=== PATIENT | male | born 1990 | race Caucasian/White ===

== ENCOUNTER 2017-01-18 23:45 | Emergency (ER) | payer SELFPAY ==
[2017-01-18 23:47] VITALS: BP 140/68; PULSE 66; RESP 18; TEMP 97
[2017-01-19] MEDS ORDERED: OXYMETAZOLINE 0.05% NASL SPRAY 15 ML NASAL STA (00:01)
--- NOTE | 2017-01-19 00:07 | ED ---
General Adult HPI - General Chief complaint: ENT Stated complaint: NOSE BLEED Time Seen by Provider: 01/18/17 23:47 Source: patient, EMS, RN notes reviewed, old records reviewed Mode of arrival: EMS Limitations: no limitations - History of Present Illness Initial comments: This is a 18-year-old male year for evaluation of nosebleed. Patient has bleeding from his left nostril. Being started tonight while playing the areas, has persisted for about the past 15-20 minutes but persisted stopped upon arrival to Hospital. Patient has no history of bleeding disorder, no history of bloody noses, denies drug abuse denies recent illness, denies trauma to nose. - Related Data Home Medications Medication Instructions Recorded Confirmed No Known Home Medications [No 01/18/17 01/18/17 Known Home Medications] Allergies Allergy/AdvReac Type Severity Reaction Status Date / Time No Known Allergies Allergy Verified 01/18/17 23:47 Review of Systems ROS Statement: Those systems with pertinent positive or pertinent negative responses have been documented in the HPI. ROS Other: All systems not noted in ROS Statement are negative. Past Medical History Past Medical History: No Reported History History of Any Multi-Drug Resistant Organisms: None Reported Past Surgical History: No Surgical Hx Reported Past Psychological History: No Psychological Hx Reported Smoking Status: Current every day smoker Past Alcohol Use History: Occasional Past Drug Use History: Cocaine, Marijuana General Exam Limitations: no limitations General appearance: alert, in no apparent distress Head exam: Present: atraumatic, normocephalic, normal inspection Eye exam: Present: normal appearance, PERRL, EOMI. Absent: scleral icterus, conjunctival injection, periorbital swelling ENT exam: Present: normal exam, mucous membranes moist Neck exam: Present: normal inspection. Absent: tenderness, meningismus, lymphadenopathy Respiratory exam: Present: normal lung sounds bilaterally. Absent: respiratory distress, wheezes, rales, rhonchi, stridor Cardiovascular Exam: Present: regular rate, normal rhythm, normal heart sounds. Absent: systolic murmur, diastolic murmur, rubs, gallop, clicks GI/Abdominal exam: Present: soft, normal bowel sounds. Absent: distended, tenderness, guarding, rebound, rigid Extremities exam: Present: normal inspection, full ROM, normal capillary refill. Absent: tenderness, pedal edema, joint swelling, calf tenderness Back exam: Present: normal inspection Neurological exam: Present: alert, oriented X3, CN II-XII intact Psychiatric exam: Present: normal affect, normal mood Skin exam: Present: warm, dry, intact, normal color. Absent: rash Course Vital Signs 01/18/17 23:46 Temperature 97 F L Pulse Rate 66 Respiratory 18 Rate Blood Pressure 140/68 O2 Sat by Pulse 99 Oximetry - Reevaluation(s) Reevaluation #1: 01/19/17 00:05 When asking to blow secondary to feeling of clots, patient was able to skip clots come out of his nose as well as mild bleeding 01/19/17 00:05 Patient did have clots drained from nose, aspirin was applied to anterior and air as well as nostril, and nose clamp was applied Medical Decision Making - Medical Decision Making 18 mallei are for evaluation of left Neer epistaxis, bleeding was stopped after application of Afrin and noseclip, patient can be discharged home Disposition Clinical Impression: Left-sided epistaxis Disposition: HOME SELF-CARE Condition: Good Instructions: Nosebleed (ED) Referrals: None,Stated [Primary Care Provider] - 1-2 days
== END 2017-01-19 00:43 | disposition home or self-care (01) ==
LOC: EC 23:45
DX: R04.0 Epistaxis (principal); F17.200 Nicotine dependence, unspecified, uncomplicated
CPT/HCPCS: 99284

== ENCOUNTER 2017-12-31 10:34 | Emergency (ER) | payer OTHER ==
[2017-12-31 10:46] VITALS: BP 116/62; PULSE 70; RESP 20; TEMP 98
[2017-12-31] MEDS ORDERED: ONDANSETRON 4 MG ODT STARTER PACK 2 TAB BTL PO STA (11:33)
--- NOTE | 2017-12-31 11:33 | ED ---
Abdominal Pain HPI - General Chief Complaint: Abdominal Pain Stated Complaint: Abdominal pain Time Seen by Provider: 12/31/17 11:00 Source: patient, RN notes reviewed, old records reviewed Mode of arrival: ambulatory Limitations: no limitations - History of Present Illness Initial Comments: This patient is a 27-year-old male presents or urgency department after he has had 2 episodes of vomiting today at work. He reports that a couple episodes of diarrhea yesterday as well. No blood or changes in stools or vomit. Patient reports she has no abdominal pain. He states that he otherwise feels well but was sent home from work. He states he has no for work. Patient states he has no significant medical history. No history of sick contacts that he is aware. - Related Data Previous Rx's Medication Instructions Recorded Ondansetron Odt [Zofran Odt] 4 mg PO Q8HR PRN #12 tab 12/31/17 Allergies Allergy/AdvReac Type Severity Reaction Status Date / Time No Known Allergies Allergy Verified 12/31/17 10:46 Review of Systems ROS Statement: Those systems with pertinent positive or pertinent negative responses have been documented in the HPI. ROS Other: All systems not noted in ROS Statement are negative. Past Medical History Past Medical History: No Reported History History of Any Multi-Drug Resistant Organisms: None Reported Past Surgical History: No Surgical Hx Reported Past Psychological History: No Psychological Hx Reported Smoking Status: Current every day smoker Past Alcohol Use History: Occasional Past Drug Use History: Cocaine, Marijuana General Exam - General Exam Comments Initial Comments: This is a well-appearing 27-year-old male. No distress. Limitations: no limitations General appearance: alert, in no apparent distress Head exam: Present: atraumatic, normocephalic, normal inspection Eye exam: Present: normal appearance, PERRL, EOMI. Absent: scleral icterus, conjunctival injection, periorbital swelling ENT exam: Present: normal exam, mucous membranes moist Neck exam: Present: normal inspection. Absent: tenderness, meningismus, lymphadenopathy Respiratory exam: Present: normal lung sounds bilaterally. Absent: respiratory distress, wheezes, rales, rhonchi, stridor Cardiovascular Exam: Present: regular rate, normal rhythm, normal heart sounds. Absent: systolic murmur, diastolic murmur, rubs, gallop, clicks GI/Abdominal exam: Present: soft, normal bowel sounds, other (Bowel sounds are normal. No tenderness on exam.). Absent: distended, tenderness, guarding, rebound, rigid Extremities exam: Present: normal inspection, full ROM, normal capillary refill. Absent: tenderness, pedal edema, joint swelling, calf tenderness Back exam: Present: normal inspection Neurological exam: Present: alert, oriented X3, CN II-XII intact Psychiatric exam: Present: normal affect, normal mood Skin exam: Present: warm, dry, intact, normal color. Absent: rash Course Vital Signs 12/31/17 10:44 Temperature 98.0 F Pulse Rate 70 Respiratory 20 Rate Blood Pressure 116/62 O2 Sat by Pulse 100 Oximetry Medical Decision Making - Medical Decision Making Patient's 27-year-old male presents to emergency department today with 2 episodes of vomiting earlier today and a couple episodes of diarrhea. Patient reports no abdominal tenderness on exam. He states that he is sent home from work and needs a note for work. At this time I discussed the patient otherwise appears clinically well. He states he did tolerate water after he had the episodes of vomiting. He states that he does not want to have any blood work or any other testing at this time. Reports he needs just a note for work. This time I'll discharge the patient with a prescription for Zofran and Lomotil. Discussed using his medications appropriately. Discussed that if he does have any abdominal pain or fevers or other symptoms he needs return. Patient understands treatment plan will comply. Return parameters were discussed. Disposition Clinical Impression: Vomiting Disposition: HOME SELF-CARE Condition: Good Instructions: Gastroenteritis (ED) Additional Instructions: Advised to rest, increase her fluid intake. Use the nausea medicine as prescribed. Return to the emergency department if any alarming signs symptoms occur. Prescriptions: Ondansetron Odt [Zofran Odt] 4 mg PO Q8HR PRN #12 tab PRN Reason: Nausea Referrals: None,Stated [Primary Care Provider] - 1-2 days Peg Roper MD [STAFF PHYSICIAN] - 1-2 days Time of Disposition: 11:32
[2017-12-31] MEDS ORDERED: DIPHENOX-ATROP STARTER PACK 8 TAB BTL PO STA (11:34)
== END 2017-12-31 11:44 | disposition home or self-care (01) ==
LOC: EC 10:34
DX: R11.10 Vomiting, unspecified (principal); R19.7 Diarrhea, unspecified; F17.200 Nicotine dependence, unspecified, uncomplicated
CPT/HCPCS: 99284; S0119

== ENCOUNTER 2018-10-03 22:36 | Emergency (ER) | payer OTHER ==
--- NOTE | 2018-10-03 23:20 | ED ---
General Adult HPI - General Chief complaint: Neuro Symptoms/Deficit Stated complaint: MS issue Time Seen by Provider: 10/03/18 23:03 Source: patient, RN notes reviewed, old records reviewed Mode of arrival: ambulatory Limitations: no limitations - History of Present Illness Initial comments: 28-year-old male with no known past medical history presents for evaluation and concerned that he has MS. Patient's mother has MS. He has had multiple neurologic complaints over the past one year. He has had intermittent weakness of his hands, numbness of his right thumb. He states he's had some gait instability. He has no trouble walking today. He has no focal weakness today. His only complaint is some ongoing numbness in his right thumb which she's had for several weeks. His additional neurological complaints have been present for the past one year to 18 months, they have been intermittent and completely resolved at times. Patient denies recurrent headaches. No headache. Denies fever or chills. Denies pain complaints. He does not have a primary care physician. He is not reported these symptoms to any neurologist. He was encouraged to present to the emergency department by his mother. - Related Data Home Medications Medication Instructions Recorded Confirmed No Known Home Medications 10/03/18 10/03/18 Allergies Allergy/AdvReac Type Severity Reaction Status Date / Time No Known Allergies Allergy Verified 10/03/18 23:07 Review of Systems ROS Statement: Those systems with pertinent positive or pertinent negative responses have been documented in the HPI. ROS Other: All systems not noted in ROS Statement are negative. Past Medical History Past Medical History: No Reported History Additional Past Medical History / Comment(s): slipped disc in neck History of Any Multi-Drug Resistant Organisms: None Reported Past Surgical History: No Surgical Hx Reported Past Psychological History: No Psychological Hx Reported Smoking Status: Former smoker Past Alcohol Use History: Occasional Past Drug Use History: Cocaine, Marijuana General Exam Limitations: no limitations General appearance: alert, in no apparent distress Head exam: Present: atraumatic, normocephalic Eye exam: Present: normal appearance, PERRL, EOMI ENT exam: Present: normal exam Neck exam: Present: normal inspection. Absent: tenderness, meningismus Respiratory exam: Present: normal lung sounds bilaterally. Absent: respiratory distress, wheezes Cardiovascular Exam: Present: regular rate, normal rhythm GI/Abdominal exam: Present: soft. Absent: distended, tenderness, guarding Extremities exam: Present: normal inspection, normal capillary refill. Absent: pedal edema Back exam: Present: normal inspection, full ROM Neurological exam: Present: alert, oriented X3, CN II-XII intact, normal gait, reflexes normal. Absent: motor sensory deficit Expanded Neurological exam: Present: protecting the airway. Absent: receptive aphasia, expressive aphasia Speech: Present: fluid speech Cranial nerves: EOM's Intact: Normal, Gag Reflex: Normal, Tongue Deviation: Normal, Nystagmus: Normal, Facial Sensation: Normal, Facial Palsy with Forehead Movement: Normal, Facial Palsy without Forehead Movement: Normal Cerebellar function: Finger to Nose: Normal Upper motor neuron: Phong Neglect: Normal, Pronator Drift: Normal Sensory exam: Upper Extremity Light Touch: Normal, Lower Extremity Light Touch: Normal Motor strength exam: RUE: 5, LUE: 5, RLE: 5, LLE: 5 DTR: Patellar (R): 1+, Patellar (L): 1+ Eye Response: (4) open spontaneously Motor Response: (6) obeys commands Verbal Response: (5) oriented Psychiatric exam: Present: normal affect, normal mood Skin exam: Present: warm, dry, intact. Absent: cyanosis, diaphoretic Course Vital Signs 10/03/18 10/04/18 22:46 00:24 Temperature 98.1 F Pulse Rate 74 Respiratory 16 17 Rate Blood Pressure 131/80 O2 Sat by Pulse 98 Oximetry Medical Decision Making - Medical Decision Making 28-year-old male presenting with intermittent neurological complaints over the past greater than one year. Patient receives head CT in the emergency department which shows possibility of a vascular abnormality for this reason CT angiography is obtained which shows that this is a vein, no AVM. I did discuss the case with Dr. Spain who is a radiologist. Does not see any hemorrhage, does not seem atypical AVM, addendum does indicate that he cannot completely rule out AVM however there is no hemorrhage. No acute findings. Given the ongoing nature of the patient's symptoms he will be discharged home with close neurology follow-up. He is given referral to neurology as an outpatient. Return with worsening or changing symptoms. - Lab Data Result diagrams: 10/03/18 23:20 10/03/18 23:20 Lab Results 10/03/18 10/03/18 Range/Units 23:20 23:20 WBC 5.6 (3.8-10.6) k/uL RBC 5.06 (4.30-5.90) m/uL Hgb 15.4 (13.0-17.5) gm/dL Hct 47.0 (39.0-53.0) % MCV 92.9 (80.0-100.0) fL MCH 30.6 (25.0-35.0) pg MCHC 32.9 (31.0-37.0) g/dL RDW 13.1 (11.5-15.5) % Plt Count 218 (150-450) k/uL Neutrophils % 59 % Lymphocytes % 26 % Monocytes % 9 % Eosinophils % 2 % Basophils % 1 % Neutrophils # 3.3 (1.3-7.7) k/uL Lymphocytes # 1.4 (1.0-4.8) k/uL Monocytes # 0.5 (0-1.0) k/uL Eosinophils # 0.1 (0-0.7) k/uL Basophils # 0.1 (0-0.2) k/uL Sodium 139 (137-145) mmol/L Potassium 4.1 (3.5-5.1) mmol/L Chloride 107 (98-107) mmol/L Carbon Dioxide 25 (22-30) mmol/L Anion Gap 7 mmol/L BUN 15 (9-20) mg/dL Creatinine 1.06 (0.66-1.25) mg/dL Est GFR (CKD-EPI)AfAm >90 (>60 ml/min/1.73 sqM) Est GFR (CKD-EPI)NonAf >90 (>60 ml/min/1.73 sqM) Glucose 102 H (74-99) mg/dL Calcium 9.1 (8.4-10.2) mg/dL Magnesium 2.3 (1.6-2.3) mg/dL Total Bilirubin 0.3 (0.2-1.3) mg/dL AST 49 (17-59) U/L ALT 47 (21-72) U/L Alkaline Phosphatase 57 (38-126) U/L Total Protein 7.1 (6.3-8.2) g/dL Albumin 4.1 (3.5-5.0) g/dL Disposition Clinical Impression: Paresthesia Disposition: HOME SELF-CARE Condition: Good Instructions: Paresthesia (ED) Is patient prescribed a controlled substance at d/c from ED?: No Referrals: None,Stated [Primary Care Provider] - 1-2 days Manny Herrera MD [STAFF PHYSICIAN] - 1-2 days Time of Disposition: 02:46
[2018-10-03 23:54] LABS: Basophils # (A) 0.1 k/uL (0-0.2); Basophils % (A) 1 %; Eosinophils # (A) 0.1 k/uL (0-0.7); Eosinophils % (A) 2 %; HGB 15.4 gm/dL (13.0-17.5); Lymphocytes # (A) 1.4 k/uL (1.0-4.8); Lymphocytes % (A) 26 %; MCH 30.6 pg (25.0-35.0); MCHC 32.9 g/dL (31.0-37.0); MCV 92.9 fL (80.0-100.0); Mean Platelet Volume 6.9; Monocytes # (A) 0.5 k/uL (0-1.0); Monocytes % (A) 9 %; Neutrophils # (A) 3.3 k/uL (1.3-7.7); Neutrophils % (A) 59 %; Platelet Count 218 k/uL (150-450); RBC 5.06 m/uL (4.30-5.90); RDW 13.1 % (11.5-15.5); WBC 5.6 k/uL (3.8-10.6)
--- NOTE | 2018-10-04 00:05 | CT ---
EXAMINATION TYPE: CT brain wo con DATE OF EXAM: 10/03/2018 COMPARISON: None HISTORY: Neuro symptoms/numbness CT DLP: 1063.4 mGycm. Automated Exposure Control for Dose Reduction was Utilized. TECHNIQUE: CT scan of the head is performed without contrast. FINDINGS: Ventricles of normal size. There is no mass effect nor midline shift. There is a linear 2.5 cm area of increased attenuation in the left frontal lobe. There is also a punctate 4 mm focus in th e subcortical lateral left frontal lobe. There is no surrounding edema. There is no mass effect. Ther e is no evidence of subdural or intradural or subarachnoid hemorrhage. I see no sign of a cortical in farct. Sella turcica appears normal. The calvarium appears normal. IMPRESSION: Linear area of increased attenuation could be a prominent draining vein or vascular malformation. I d o not think th otherwise negative exam. Is is cerebral parenchymal hemorrhage.
[2018-10-04 00:12] LABS: ALT 47 U/L (21-72); AST 49 U/L (17-59); Albumin 4.1 g/dL (3.5-5.0); Alkaline Phosphatase 57 U/L (38-126); Anion Gap 7 mmol/L; Blood Urea Nitrogen 15 mg/dL (9-20); Calcium 9.1 mg/dL (8.4-10.2); Carbon Dioxide 25 mmol/L (22-30); Chloride 107 mmol/L (98-107); Glucose 102 mg/dL (74-99); Magnesium 2.3 mg/dL (1.6-2.3); Potassium 4.1 mmol/L (3.5-5.1); Sodium 139 mmol/L (137-145); Total Bilirubin 0.3 mg/dL (0.2-1.3); Total Protein 7.1 g/dL (6.3-8.2)
--- NOTE | 2018-10-04 01:15 | CT ---
EXAMINATION TYPE: CT angio COW [facility] DATE OF EXAM: 10/04/2018 1:01 AM COMPARISON: None HISTORY: neuro deficits CT DLP: 683.5 mGycm Automated exposure control for dose reduction was used. TECHNIQUE: Performed with IV Contrast, patient injected with 100 mL of Isovue 370. . There are 3-D post processed images. FINDINGS: There is bilateral arterial flow in the intracranial internal carotid arteries. There is arterial layla w in the anterior middle and posterior cerebral arteries. There is arterial flow in the vertebrobasil ar artery system. Vertebral arteries are fairly symmetric. There is bilateral arterial flow in the po sterior communicating arteries. I see no evidence of mass effect. There is no evidence of aneurysm or neovascularity. There is no evidence of luminal narrowing. There is a prominent draining vein in the lateral left frontal lobe that accounts for high attenuation seen on the CT scan today. I do not see evidence of an arteriovenous malformation. There is normal contrast opacification of the venous sinuses. IMPRESSION: THERE IS A PROMINENT DRAINING CEREBRAL VEIN ON THE LEFT SIDE LEFT FRONTAL LOBE. NO EVIDENCE OF ARTERI OVENOUS MALFORMATION.
[2018-10-04 05:25] VITALS: BP 124/89; PULSE 69; RESP 18; TEMP 98.6
== END 2018-10-04 03:22 | disposition home or self-care (01) ==
LOC: EC 22:36
DX: R20.2 Paresthesia of skin (principal); R20.0 Anesthesia of skin; R53.1 Weakness; Z87.891 Personal history of nicotine dependence
CPT/HCPCS: 36415; 70450; 70496; 80053; 83735; 85025; 99284

== ENCOUNTER 2018-10-27 02:25 | Observation (INO) | payer OTHER ==
--- NOTE | 2018-10-27 02:41 | ED ---
Headache HPI - General Chief Complaint: Headache Stated Complaint: Headache Time Seen by Provider: 10/27/18 02:39 Mode of arrival: ambulatory Limitations: no limitations - History of Present Illness Initial Comments: Robbie is a 28-year-old -[place] male who presents to the emergency department today for evaluation of headache and right arm weakness. Patient reports that he has been having intermittent weakness of his right side for a few weeks, he was evaluated in our hospital where he had a computed tomography scan of the CTA of his head, he was advised at that time that he had an enlarged blood vessel in his brain and if he develops any headaches he should come to the ER for further evaluation. 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 He reports that a few years ago he was hospitalized for left-sided paralysis and after a thorough workup use advised was due to slipped disks in his neck however he never received any neurosurgical intervention or treatment. Patient reports he has had intermittent weakness of his extremities over the past couple months. He reports that he's been advised he needs to follow-up with a neurologist for further evaluation of possible MS however due to the holidays he's been unable to do so. - Related Data Home Medications Medication Instructions Recorded Confirmed No Known Home Medications 10/03/18 10/27/18 Allergies Allergy/AdvReac Type Severity Reaction Status Date / Time No Known Allergies Allergy Verified 10/27/18 06:46 Review of Systems ROS Statement: Those systems with pertinent positive or pertinent negative responses have been documented in the HPI. ROS Other: All systems not noted in ROS Statement are negative. Past Medical History Past Medical History: No Reported History Additional Past Medical History / Comment(s): slipped disc in neck History of Any Multi-Drug Resistant Organisms: None Reported Past Surgical History: No Surgical Hx Reported Past Psychological History: No Psychological Hx Reported Smoking Status: Current every day smoker Past Alcohol Use History: Occasional Past Drug Use History: Cocaine, Marijuana - Past Family History Father Family Medical History: No Reported History Additional Family Medical History / Comment(s): Father is healthy. Mother Family Medical History: Musculoskeletal Disorder, Neurologic Disorder Additional Family Medical History / Comment(s): Mother has MS. General Exam - General Exam Comments Initial Comments: Physical Exam GENERAL: Patient is well-developed and well-nourished. Patient is nontoxic and well-hydrated and is in no distress. HENT: Normocephalic, Atraumatic. EYES: PERRL, EOMI No papal edema PULMONARY: Unlabored respirations. No audible rales rhonchi or wheezing was noted. CARDIOVASCULAR: There is a regular rate and rhythm without any murmurs gallops or rubs. ABDOMEN: Soft and nontender with normal bowel sounds. SKIN: Skin is clear with no lesions or rashes and otherwise unremarkable. : Deferred NEUROLOGIC: Patient is alert and oriented x3. 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 No lower extremity swelling or edema. No calf tenderness. PSYCHIATRIC: Normal psychiatric evaluation. Limitations: no limitations Limitations: no limitations Course Vital Signs 10/27/18 10/27/18 10/27/18 02:33 02:46 02:54 Temperature 98.4 F 97.1 F L Pulse Rate 60 66 Respiratory 18 18 Rate Blood Pressure 123/81 117/61 O2 Sat by Pulse 98 99 98 Oximetry 10/27/18 10/27/18 10/27/18 03:00 05:00 06:00 Temperature Pulse Rate 83 79 78 Respiratory 16 16 14 Rate Blood Pressure 117/61 98/65 109/81 O2 Sat by Pulse 98 95 97 Oximetry Medical Decision Making - Medical Decision Making Patient was seen and evaluated history is obtained from patient and review of medical record This is a very well-appearing, physically fit 28-year-old gentleman presenting with headache and right-sided deficits of unknown duration patient has been dealing with intermittent weaknesses for a while he has had no neurologic evaluation in the past 5 years or any further evaluation for possible neurologic disorder Patient is presenting with a headache he reports that it's 3 days in duration progressively worsening not responding to [id number] medications. Patient denies any history of significant headaches in the past. Review of his previous CTA does reveal the has a prominent vessel but no obvious aneurysms. Given the patient's headache and right-sided weakness and will obtain a head CT. No sign Labs were relatively unremarkable head CT with no acute findings Patient care was discussed with the admitting physician Dr. Jimenez recommends imaging of the patient's spine to ensure there is no obvious compressive cause of his right arm weakness that would require neurosurgical evaluation. CT of the patient's spine was ordered and reviewed with no acute findings patient care was again discussed with the admitting physician Dr. Jimenez who accepts admission with a consult to Neurology. - Lab Data Result diagrams: 10/27/18 03:50 10/27/18 03:50 Lab Results 10/27/18 10/27/18 Range/Units 03:50 03:50 WBC 6.2 (3.8-10.6) k/uL RBC 4.85 (4.30-5.90) m/uL Hgb 15.1 (13.0-17.5) gm/dL Hct 45.3 (39.0-53.0) % MCV 93.4 (80.0-100.0) fL MCH 31.1 (25.0-35.0) pg MCHC 33.3 (31.0-37.0) g/dL RDW 13.0 (11.5-15.5) % Plt Count 212 (150-450) k/uL Neutrophils % 52 % Lymphocytes % 35 % Monocytes % 7 % Eosinophils % 3 % Basophils % 1 % Neutrophils # 3.2 (1.3-7.7) k/uL Lymphocytes # 2.2 (1.0-4.8) k/uL Monocytes # 0.5 (0-1.0) k/uL Eosinophils # 0.2 (0-0.7) k/uL Basophils # 0.0 (0-0.2) k/uL Sodium 140 (137-145) mmol/L Potassium 4.2 (3.5-5.1) mmol/L Chloride 109 H (98-107) mmol/L Carbon Dioxide 24 (22-30) mmol/L Anion Gap 7 mmol/L BUN 19 (9-20) mg/dL Creatinine 1.34 H (0.66-1.25) mg/dL Est GFR (CKD-EPI)AfAm 82 (>60 ml/min/1.73 sqM) Est GFR (CKD-EPI)NonAf 71 (>60 ml/min/1.73 sqM) Glucose 97 (74-99) mg/dL Calcium 9.3 (8.4-10.2) mg/dL Total Bilirubin 0.6 (0.2-1.3) mg/dL AST 28 (17-59) U/L ALT 44 (21-72) U/L Alkaline Phosphatase 59 (38-126) U/L Total Protein 7.1 (6.3-8.2) g/dL Albumin 4.0 (3.5-5.0) g/dL Disposition Clinical Impression: Headache, Muscle right arm weakness Disposition: ADMITTED IP TO THIS [facility] Condition: Good
[2018-10-27] MEDS ORDERED: SODIUM CHLORIDE 0.9% 1,000 ML IV STA (03:08)
[2018-10-27] MEDS ORDERED: diphenhydrAMINE 50 MG/ML 1 ML VIAL IVP STA (03:08)
[2018-10-27] MEDS ORDERED: METOCLOPRAMIDE 5 MG/ML 2 ML VIAL IVP STA (03:08)
--- NOTE | 2018-10-27 04:02 | CT ---
EXAMINATION TYPE: CT brain wo con DATE OF EXAM: 10/27/2018 COMPARISON: 10/03/2018 HISTORY: Headache CT DLP: 1111.40 mGycm. Automated Exposure Control for Dose Reduction was Utilized. TECHNIQUE: CT scan of the head is performed without contrast. FINDINGS: Ventricles of normal size. There is no mass effect nor midline shift. There is no sign of i ntracranial hemorrhage. Calvarium is intact. IMPRESSION: Negative CT scan of the brain. No change.
[2018-10-27 04:15] LABS: Basophils % (A) 1 %; Eosinophils # (A) 0.2 k/uL (0-0.7); Eosinophils % (A) 3 %; HCT 45.3 % (39.0-53.0); HGB 15.1 gm/dL (13.0-17.5); Lymphocytes # (A) 2.2 k/uL (1.0-4.8); Lymphocytes % (A) 35 %; MCH 31.1 pg (25.0-35.0); MCHC 33.3 g/dL (31.0-37.0); MCV 93.4 fL (80.0-100.0); Mean Platelet Volume 6.7; Monocytes # (A) 0.5 k/uL (0-1.0); Monocytes % (A) 7 %; Neutrophils # (A) 3.2 k/uL (1.3-7.7); Neutrophils % (A) 52 %; Platelet Count 212 k/uL (150-450); RBC 4.85 m/uL (4.30-5.90); WBC 6.2 k/uL (3.8-10.6)
[2018-10-27 04:17] LABS: Calcium 9.3 mg/dL (8.4-10.2); Potassium 4.2 mmol/L (3.5-5.1); Total Bilirubin 0.6 mg/dL (0.2-1.3); Total Protein 7.1 g/dL (6.3-8.2)
[2018-10-27] MEDS ORDERED: SODIUM CHLORIDE 0.9% 1,000 ML IV ONE (04:23)
--- NOTE | 2018-10-27 05:48 | CT ---
EXAM: CT Cervical Spine Without Intravenous Contrast. CLINICAL HISTORY: Reason: Pain TECHNIQUE: Axial computed tomography images of the cervical spine without intravenous contrast. CTDI is 20.1 mGy and DLP is 634 mGy-cm. This CT exam was performed using one or more of the following dose reduction techniques: automated exposure control, adjustment of the mA and/or kV according to patient size, and/or use of iterative reconstruction technique. COMPARISON: No relevant prior studies available. FINDINGS: Vertebrae: No acute fracture. Vertebral body heights are preserved. Discs/spinal canal/neural foramina: No acute findings. No spinal canal stenosis. Soft tissues: Unremarkable. Lung apices: Unremarkable as visualized. IMPRESSION: No fracture or malalignment of the cervical spine.
--- NOTE | 2018-10-27 05:56 | CT ---
EXAM: CT Thoracic Spine Without Intravenous Contrast. CLINICAL HISTORY: Reason: Pain TECHNIQUE: Axial computed tomography images of the thoracic spine without intravenous contrast. CTDI is 20.4 mGy and DLP is a 53 mGy-cm. This CT exam was performed using one or more of the following dose reduction techniques: automated exposure control, adjustment of the mA and/or kV according to patient size, and/or use of iterative reconstruction technique. COMPARISON: No relevant prior studies available. FINDINGS: Vertebrae: Unremarkable. No acute fracture. Discs/spinal canal/neural foramina: No acute findings. No spinal canal stenosis. Soft tissues: Unremarkable. IMPRESSION: Normal thoracic spine. EXAM: CT Lumbar Spine Without Intravenous Contrast. CLINICAL HISTORY: Reason: Pain TECHNIQUE: Axial computed tomography images of the lumbar spine without intravenous contrast. CTDI is 22.7 mGy and DLP is 744 mGy-cm. This CT exam was performed using one or more of the following dose reduction techniques: automated exposure control, adjustment of the mA and/or kV according to patient size, and/or use of iterative reconstruction technique. COMPARISON: No relevant prior studies available. FINDINGS: Vertebrae: Unremarkable. No acute fracture. Discs/spinal canal/neural foramina: No acute findings. No spinal canal stenosis. Soft tissues: Unremarkable. IMPRESSION: Normal lumbar spine.
[2018-10-27] MEDS ORDERED: NALOXONE 0.4 MG/ML 1 ML VIAL IV PRN (06:36)
[2018-10-27 10:16] LABS: Appearance,Urine Clear (Clear); Bacteria,Urine Occasional /hpf; Bilirubin,Urine Negative (Negative); Blood,Urine Small (Negative); Color,Urine Light Yellow; Glucose,Urine (UA) Negative (Negative); Ketones,Urine Negative (Negative); Leukocyte Esterase,Urine Trace (Negative); Mucus,Urine Rare /hpf; Nitrite,Urine Negative (Negative); PH, Urine 6.5 (5.0-8.0); Protein,Urine Negative (Negative); RBC,Urine 12 /hpf (0-5); Specific Gravity,Urine 1.014 (1.001-1.035); Squamous Epithelial Cell,Urine 1 /hpf (0-4); Urobilinogen,Urine <2.0 mg/dL (<2.0); WBC,Urine 7 /hpf (0-5)
--- NOTE | 2018-10-27 17:55 | P.HPIM ---
History of Present Illness Chief Complaint: Headache and neck pain 28-year-old male without significant past medical history complaining of headache. He states he has been going on for couple weeks. He describes it as throbbing headache frontal and occipital moderate in intensity worse with sitting up and somewhat better when laying down no changes with Valsalva maneuver no nausea no vomiting. Headache is present throughout the day. Does not wake him up overnight and does not present in the morning. Does not interfere with activities of daily living. He feels that he might have some blurring on the right eye occasionally. He notices that he has some numbness in the right thumb. He reports some neck pain especially with certain movements radiating to right shoulder. Patient states that he had some neck injury in the past bulging disc. He also had CT and CTA recently done and had enlarged draining venous sinus. He denies any chest pain fever chills abdominal pain. Denies any skin rash. He is admitted for evaluation of this. Review of Systems REVIEW OF SYSTEMS: CONSTITUTIONAL: No fever or chills HEENT: No changes in vision or voice CARDIOVASCULAR: no chest pain or abnormal heart beats, or any swelling in ankles or feet. RESPIRATORY: No wheezing or coughing. GASTROINTESTINAL: No abdominal pain, no nausea no vomiting no constipation or diarrhea GENITOURINARY: no any urinary urgency, frequency or burning, and there has been no blood in her urine. no flank pain. MUSCULOSKELETAL: She notes full range of motion of all her joints without pain or swelling. NEUROLOGICAL: , As per HPI Past Medical History Past Medical History: GERD/Reflux, Syncope Additional Past Medical History / Comment(s): Recent syncope about 3 weeks ago, occasional cervical pain/slipped disc in neck History of Any Multi-Drug Resistant Organisms: None Reported Past Surgical History: No Surgical Hx Reported Past Anesthesia/Blood Transfusion Reactions: Unable to Obtain Additional Past Anesthesia/Blood Transfusion Reaction / Comment(s): Pt has never had surgery Smoking Status: Current every day smoker - Past Family History Father Family Medical History: No Reported History Additional Family Medical History / Comment(s): Father is healthy. Mother Family Medical History: Musculoskeletal Disorder, Neurologic Disorder Additional Family Medical History / Comment(s): Mother has MS. Medications and Allergies Home Medications Medication Instructions Recorded Confirmed Type No Known Home Medications 10/03/18 10/27/18 History Allergies Allergy/AdvReac Type Severity Reaction Status Date / Time No Known Allergies Allergy Verified 10/27/18 06:46 Physical Exam Vitals: Vital Signs Temp Pulse Pulse Pulse Resp BP BP 10/27/18 15:46 98.3 F 73 18 112/64 10/27/18 08:00 97.5 F L 65 16 122/69 10/27/18 06:00 78 14 109/81 10/27/18 05:00 79 16 98/65 10/27/18 03:00 83 16 117/61 10/27/18 02:54 97.1 F L 66 18 117/61 10/27/18 02:46 10/27/18 02:33 98.4 F 60 18 123/81 Pulse Ox 10/27/18 15:46 99 10/27/18 08:00 99 10/27/18 06:00 97 10/27/18 05:00 95 10/27/18 03:00 98 10/27/18 02:54 98 10/27/18 02:46 99 10/27/18 02:33 98 Intake and Output 10/27/18 10/27/18 10/27/18 06:59 14:59 22:59 Intake Total 480 Output Total 200 Balance 280 Intake: Oral 480 Output: Urine 200 Other: Weight 107.048 kg 106.7 kg Vital Signs: I have reviewed the vital signs. GENERAL: Well-nourished, Well-developed , no apparent distress, cooperative Eyes: PERRL, extraoculry movements intact, clear conjunctiva Head: : Atraumatic external nose and ears, oropharyngeal mucosa is moist without lesions or exudates Neck: Symmetric, trachea midline, No thyromegaly, no masses or neck vain pulsation, no neck rigidity CVS: +S1/S2, No murmurs or gallops. Peripheral pulses 2+ and equal in all extremities. RESP: Unlabored respiratory effort. Clear to auscultation bilaterally. Abdomen: Bowel sounds present in all 4 quadrants, Soft to palpation, Nontender/ Nondistended, No hepatosplenomegaly, no hernias or masses, no CVA tnderness Musculoskeletal: Extremities w/o deformity, No cyanosis or clubbing, no joint swelling Skin: Warm, Dry. No rashes or lesions Neuro: undercover agent II-XII grossly intact, motor strenght 5/5 i upper and lower extremities, no clonus, patellar DTRs 2+ and sympetrical Psych: Awake, Alert, & Oriented (AAO) x3 Appropriate mood and affect Results CBC & Chem 7: 10/27/18 03:50 10/27/18 03:50 Labs: Abnormal Lab Results - Last 24 Hours (Table) 10/27/18 10/27/18 Range/Units 03:50 09:30 Chloride 109 H (98-107) mmol/L Creatinine 1.34 H (0.66-1.25) mg/dL Urine Blood Small H (Negative) Ur Leukocyte Esterase Trace H (Negative) Urine RBC 12 H (0-5) /hpf Urine WBC 7 H (0-5) /hpf Urine Bacteria Occasional H (None) /hpf Urine Mucus Rare H (None) /hpf Thrombosis Risk Factor Assmnt - Choose All That Apply Any of the Below Risk Factors Present?: Yes Each Factor Represents 1 point: Obesity (BMI >25) Other Risk Factors: No Other congenital or acquired thrombophilia - If yes, enter type in comment: No Thrombosis Risk Factor Assessment Total Risk Factor Score: 1 Thrombosis Risk Factor Assessment Level: Low Risk Assessment and Plan Assessment: 28-year-old male admitted with headache. No typical or any specific pattern. He does report some neck pain and discomfort and feels that there might be some component of radiation to his head in form of headache. He does report some injury to the neck with some disc bulging in the past. He reports some sort of a pain radiating from his neck to his right shoulder and numbness in his right thumb. His neurological exam is nonfocal. Neurology has been consulted. He may consider obtaining MRI of his cervical neck but again I would rather wait neurological recommendations. Continue to observe patient for now. Acute kidney injurypatient has elevated creatinine Is normal. His UA is significant for presence of RBCs and there are no protein. We will consult nephrology . Check CPK. Check sedimentation rate.
--- NOTE | 2018-10-27 19:42 | P.CNNES ---
History of Present Illness Consult date: 10/27/18 Reason for Consult: Patient admitted with headache and right arm numbness. History of Present Illness: This patient is a 28-year-old right-handed white male who states that about 2 weeks ago he was in the emergency room after having a passing out spell. He underwent a CT angiogram at that time in the ER which revealed evidence for a prominent draining cerebral vein on the left side of the frontal lobe. No evidence of any arteriovenous malformation was noted. He was advised to monitor for any headaches. Apparently over the last 2 weeks he has had some recurrent headache pain and neck pain which she attributes to possible work related issues. He has been more concerned recently about the question of multiple sclerosis. Apparently his mother was diagnosed with MS and several other family members also have multiple sclerosis. He has had symptoms that he has been noticing including blurriness of his vision as well as numbness in his right hand. He feels his balance has been quite often in causing him to be very unsteady when walking. He also complains of stuttering speech at times. Patient apparently was involved in a wrestling accident in 2014 which caused him some neck injury and left him with some left-sided paralysis which eventually improved over a month of therapy. He has no other history of neck injury or neck trauma. He has been noticing numbness mostly in his right hand which seems to be off and on throughout the day when he is working. 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 Due to the headache pain and symptoms concerning for MS he decided to come into the emergency room today for further reevaluation. He was subsequently admitted to Hospital. Given his history of symptoms suggesting possibility of demyelinating disease and his young age we have recommended MRI of the brain. We will also obtain MRA of the brain to further evaluate the left frontal lobe draining cerebral vein. Given his history of previous wrestling injury and neck trauma would also recommend an MRI of the cervical spine to be done. His plain x-ray of the cervical spine done today revealed no evidence of fracture or misalignment. Computed tomography scan of the thoracic and lumbar spine was also unremarkable. Patient states currently he does get headache mostly bifrontal in nature. He denies any radicular pain down his right arm at this time. We have recommended the patient to be admitted for full evaluation to rule out possibility of demyelinating disease versus TIA or stroke. His overall prognosis at this time remains guarded. Review of Systems Constitutional: Denies chills, Denies fever Eyes: denies blurred vision, denies pain Ears, nose, mouth and throat: Denies headache, Denies sore throat Cardiovascular: Denies chest pain, Denies shortness of breath Respiratory: Denies cough Gastrointestinal: Denies abdominal pain, Denies diarrhea, Denies nausea, Denies vomiting Musculoskeletal: Denies myalgias Integumentary: Denies pruritus, Denies rash Neurological: Denies numbness, Denies weakness Psychiatric: Denies anxiety, Denies depression Endocrine: Denies fatigue, Denies weight change Past Medical History Past Medical History: GERD/Reflux, Syncope Additional Past Medical History / Comment(s): Recent syncope about 3 weeks ago, occasional cervical pain/slipped disc in neck History of Any Multi-Drug Resistant Organisms: None Reported Past Surgical History: No Surgical Hx Reported Past Anesthesia/Blood Transfusion Reactions: Unable to Obtain Additional Past Anesthesia/Blood Transfusion Reaction / Comment(s): Pt has never had surgery Smoking Status: Current every day smoker - Past Family History Father Family Medical History: No Reported History Additional Family Medical History / Comment(s): Father is healthy. Mother Family Medical History: Musculoskeletal Disorder, Neurologic Disorder Additional Family Medical History / Comment(s): Mother has MS. Medications and Allergies Home Medications Medication Instructions Recorded Confirmed Type No Known Home Medications 10/03/18 10/27/18 History Allergies Allergy/AdvReac Type Severity Reaction Status Date / Time No Known Allergies Allergy Verified 10/27/18 06:46 Physical Examination - Vital Signs Vital Signs: Vital Signs Temp Pulse Pulse Pulse Resp BP BP 10/27/18 15:46 98.3 F 73 18 112/64 10/27/18 08:00 97.5 F L 65 16 122/69 10/27/18 06:00 78 14 109/81 10/27/18 05:00 79 16 98/65 10/27/18 03:00 83 16 117/61 10/27/18 02:54 97.1 F L 66 18 117/61 10/27/18 02:46 10/27/18 02:33 98.4 F 60 18 123/81 Pulse Ox 10/27/18 15:46 99 10/27/18 08:00 99 10/27/18 06:00 97 10/27/18 05:00 95 10/27/18 03:00 98 10/27/18 02:54 98 10/27/18 02:46 99 10/27/18 02:33 98 Intake and Output 10/27/18 10/27/18 10/27/18 06:59 14:59 22:59 Intake Total 480 Output Total 200 Balance 280 Intake: Oral 480 Output: Urine 200 Other: Weight 107.048 kg 106.7 kg - Constitutional General appearance: average body habitus, cooperative - EENT EENT: PERRL, mucous membranes moist - Respiratory Respiratory: lungs clear, normal breath sounds - Cardiovascular Cardiovascular: regular rate, normal S1, normal S2 Extremities: no peripheral edema bilaterally - Gastrointestinal Gastrointestinal: normoactive bowel sounds - Integumentary Integumentary: normal - Neurologic Cranial nerve examination: PERRL, EOMI, V1/V2/V3 grossly intact, face symmetric , intact shoulder shrug, intact gag reflex, intact corneal reflex, normal palatal elevation Speech examination: intact Sensorimotor examination: intact Motor examination - right side: 4/5: biceps, triceps, wrist flexion, wrist extension, starch crab, hip flexors, knee extensors, dorsiflexion, toe extension (EHL) , plantarflexion Motor examination - left side: 4/5: biceps, triceps, wrist flexion, wrist extension, starch crab, hip flexors, knee extensors, dorsiflexion, toe extension (EHL) , plantarflexion Detailed sensory examination: intact Reflex and gait examination: intact Reflexes: 1+: ankle, bicep, knee, tricep - Musculoskeletal Musculoskeletal: no pain - Psychiatric Psychiatric: mood/affect appropriate, cooperative Results - Laboratory Findings CBC and BMP: 10/27/18 03:50 10/27/18 03:50 Abnormal Lab Findings: Abnormal Labs 10/27/18 10/27/18 03:50 09:30 Chloride 109 H Creatinine 1.34 H Urine Blood Small H Ur Leukocyte Esterase Trace H Urine RBC 12 H Urine WBC 7 H Urine Bacteria Occasional H Urine Mucus Rare H Assessment and Plan (1) Demyelinating disease Current Visit: Yes Status: Acute Code(s): G37.9 - DEMYELINATING DISEASE OF CENTRAL NERVOUS SYSTEM, UNSPECIFIED SNOMED Code(s): 675825024 (2) Cervical radiculopathy Current Visit: Yes Status: Acute Code(s): M54.12 - RADICULOPATHY, CERVICAL REGION SNOMED Code(s): 75846043 (3) Remote neck injury Current Visit: Yes Status: Acute Code(s): Z87.828 - PERSONAL HISTORY OF OTH (HEALED) PHYSICAL INJURY AND TRAUMA SNOMED Code(s): 560817874 (4) Paresthesia Current Visit: No Status: Acute Code(s): R20.2 - PARESTHESIA OF SKIN SNOMED Code(s): 55839557 (5) Headache Current Visit: Yes Status: Acute Code(s): R51 - HEADACHE SNOMED Code(s): 66832164 Plan: This patient is a 28-year-old male who was admitted with history of headache and paresthesias mostly involving his right hand. He has been concerned about possibility of having demyelinating disease such as multiple sclerosis. His mother is diagnosed with the same condition and he has been having symptoms very similar to her. He has been very concerned about possibility of MS. He has not had any neuro imaging studies done to evaluate for MS. Apparently he has a history of a wrestling accident involving his neck to cause some left- sided paralysis in 2014 from which she has recovered. He has been noticing increasing right-sided paresthesias and weakness. We have recommended patient to undergo further evaluation to rule out demyelinating disease such as multiple sclerosis. Would recommend MRI/MRA of the brain as well as MRI of the cervical spine. He has been having symptoms of blurriness in his vision as well as paresthesias and unsteady gait. We will give further recommendations depending the results of his neuroimaging studies. His overall prognosis at this time remains guarded. Time with Patient: Greater than 30
[2018-10-27] MEDS: ACETAMINOPHEN TAB 325 MG TAB PO PRN (20:47)
[2018-10-28] MEDS: ACETAMINOPHEN TAB 325 MG TAB PO PRN (10:00)
--- NOTE | 2018-10-28 10:00 | P.PN ---
Subjective Patient was admitted with complaint of headache and some neck discomfort with movements and some right shoulder discomfort with neck movements and the right thumb numbness intermittently. He also complained of some blurring of the lesion on the right eye occasionally. There is a family history of MS. There is a history of neck injury slipped disc. Interval history: Morning his doing well he does not report much of the symptomatology mention of admission. His symptoms are intermittent anyways. He is planned for MRI brain and cervical spine and swelling MRA REVIEW OF SYSTEMS: CONSTITUTIONAL: No fever or chills HEENT: No changes in vision or voice CARDIOVASCULAR: no chest pain or abnormal heart beats, or any swelling in ankles or feet. RESPIRATORY: No wheezing or coughing. GASTROINTESTINAL: No abdominal pain, no nausea no vomiting no constipation or diarrhea GENITOURINARY: no any urinary urgency, frequency or burning, and there has been no blood in her urine. no flank pain. MUSCULOSKELETAL: She notes full range of motion of all her joints without pain or swelling. NEUROLOGICAL: , no headache. no vision changes, or fainting. No numbness or tingling. Objective - Vital Signs Vital signs: Vital Signs Temp 97.7 F 10/28/18 08:00 Pulse 67 10/28/18 08:00 Resp 18 10/28/18 08:00 BP 116/66 10/28/18 08:00 Pulse Ox 99 10/28/18 08:00 Intake & Output 10/27/18 10/28/18 10/28/18 18:59 06:59 18:59 Intake Total 480 Output Total 200 Balance 280 Weight 106.7 kg 106.7 kg Intake: Oral 480 Output: Urine 200 Other: Voiding Method Toilet - Exam Vital Signs: I have reviewed the vital signs. GENERAL: Well-nourished, Well-developed , no apparent distress, cooperative Eyes: PERRL, extraoculry movements intact, clear conjunctiva Head: : Atraumatic external nose and ears, oropharyngeal mucosa is moist without lesions or exudates Neck: Symmetric, trachea midline, No thyromegaly, no masses or neck vain pulsation, no neck rigidity CVS: +S1/S2, No murmurs or gallops. Peripheral pulses 2+ and equal in all extremities. RESP: Unlabored respiratory effort. Clear to auscultation bilaterally. Abdomen: Bowel sounds present in all 4 quadrants, Soft to palpation, Nontender/ Nondistended, No hepatosplenomegaly, no hernias or masses, no CVA tnderness Musculoskeletal: Extremities w/o deformity, No cyanosis or clubbing, no joint swelling Skin: Warm, Dry. No rashes or lesions Neuro: manager traffic II-XII grossly intact, motor strenght 5/5 i upper and lower extremities, no clonus, patellar DTRs 2+ and sympetrical Psych: Awake, Alert, & Oriented (AAO) x3 Appropriate mood and affect - Labs CBC & Chem 7: 10/27/18 03:50 10/27/18 03:50 Labs: Abnormal Lab Results - Last 24 Hours (Table) 10/27/18 Range/Units 09:30 Urine Blood Small H (Negative) Ur Leukocyte Esterase Trace H (Negative) Urine RBC 12 H (0-5) /hpf Urine WBC 7 H (0-5) /hpf Urine Bacteria Occasional H (None) /hpf Urine Mucus Rare H (None) /hpf Assessment and Plan Assessment: 1. Headache and neck pain with blurring of the lesion History of MS and neck injury Awaiting MRI brain cervical spine and MRA This morning his doing well without any neurological complaints 2. RUTH History of excessive Motrin use We discussed avoiding NSAIDs UA has RBCs no protein or leukocytes Sedimentation rate is normal Obtain a neurological consultation
--- NOTE | 2018-10-28 12:35 | MR ---
EXAMINATION TYPE: MR angio head wo con DATE OF EXAM: 10/28/2018 11:59 AM COMPARISON: None. HISTORY: Patient with headaches and left frontal vein on CT TECHNIQUE: Time of flight images focusing on the [place] were performed without contrast. FINDINGS: The left vertebral artery is dominant. Both posterior communicating arteries are patent. Both ophthalmic arteries are patent. There is trell l arborization of the middle cerebral artery. Both anterior cerebral arteries are intact. The posteri or circulation is unremarkable. No sizable aneurysm is seen. IMPRESSION: NORMAL MRA OF THE [place] OF [place].
--- NOTE | 2018-10-28 12:40 | P.NPCON ---
History of Present Illness - Reason for Consult Consult date: 10/28/18 acute renal failure - Chief Complaint Acute kidney injury and microscopic hematuria - History of Present Illness Is a 28-year-old male seen in consultation because of acute kidney injury. Creatinine was 1.32 on admission. Previous to creatinine was 1 in September 2018 a month ago. He came into the ER because of headache. He has taken large amounts of nonsteroidals of multiple kinds and has been having headache for which she was taking his medications. He has been evaluated by a CTA on 2017. Creatinine was 1.06 a day before the CTA dated 10/03/2018. The next available creatinine is yesterday 10/27/2018 when it was 1.34. Reason denies any nausea vomiting diarrhea abdominal pain no fever chills no chest pain shortness of breath. Past Medical History Past Medical History: GERD/Reflux, Syncope Additional Past Medical History / Comment(s): Recent syncope about 3 weeks ago, occasional cervical pain/slipped disc in neck History of Any Multi-Drug Resistant Organisms: None Reported Past Surgical History: No Surgical Hx Reported Past Anesthesia/Blood Transfusion Reactions: Unable to Obtain Additional Past Anesthesia/Blood Transfusion Reaction / Comment(s): Pt has never had surgery Smoking Status: Current every day smoker - Past Family History Father Family Medical History: No Reported History Additional Family Medical History / Comment(s): Father is healthy. Mother Family Medical History: Musculoskeletal Disorder, Neurologic Disorder Additional Family Medical History / Comment(s): Mother has MS. Medications and Allergies Home Medications Medication Instructions Recorded Confirmed Type No Known Home Medications 10/03/18 10/27/18 History Allergies Allergy/AdvReac Type Severity Reaction Status Date / Time No Known Allergies Allergy Verified 10/27/18 06:46 Physical Exam Vitals: Vital Signs Temp Pulse Resp BP Pulse Ox 10/28/18 12:00 67 18 10/28/18 08:00 97.7 F 67 18 116/66 99 10/28/18 03:28 18 10/28/18 00:00 18 10/27/18 23:25 97.7 F 72 18 135/76 99 10/27/18 20:00 18 10/27/18 15:46 98.3 F 73 18 112/64 99 Intake and Output 10/27/18 10/28/18 10/28/18 22:59 06:59 14:59 Other: Voiding Method Toilet Toilet Toilet Weight 106.7 kg On exam general he is a well-built male in no distress. He is comfortable. No JVP neck is supple no facial asymmetry Lungs are clear to auscultation good air entry bilaterally Heart sounds are unremarkable for any murmur rub gallop Abdomen soft nontender Extremity exam was no edema Is no skin rash Neurologically awake alert oriented. Results - Lab Results Most recent lab results Calcium 9.3 mg/dL (8.4-10.2) 10/27/18 03:50 10/27/18 03:50 10/27/18 03:50 Assessment and Plan Assessment: Impression 1. Acute kidney injury with creatinine of 1.34 likely secondary to nonsteroidals, he has used fair with large amount of many kinds of nonsteroidals. 2. Mild microscopic hematuria with RBCs 12 possibly related to the nonsteroidals. He had 7 WBCs. Possibility of acute interstitial nephritis is considered. 3. Severe headaches with a large sinus draining the frontal lobe seen on CTA on 10/04/2018. An MRI has been done this morning and results are pending. Recommendation. 1. We'll redo his labs tomorrow and see if his creatinine is improving. 2. Possibility of acute interstitial nephritis is considered but because the creatinine is barely about normal will see how it responds. We may or to start him on prednisone if his creatinine does not improve by tomorrow. 3. I'll start him IV Ringer's lactate fluids #70 an hour Thank you for this consultation and will continue
[2018-10-28] MEDS ORDERED: LACTATED RINGERS 1,000 ML IV SCH (12:45)
--- NOTE | 2018-10-28 12:54 | MR ---
EXAMINATION TYPE: MR brain/cspine wo/w DATE OF EXAM: 10/28/2018 COMPARISON: None. HISTORY: Patient with possible MS and headaches TECHNIQUE: Multiplanar, multisequence images of the brain and cervical spine is performed without and with IV co ntrast, utilizing 11 mL intravenous Gadavist . FINDINGS: BRAIN: Midline structures are unremarkable. There is a normal craniocervical junction. Echoplanar diffusion imaging is normal. There are normal vascular flow voids. There is mild mucoperiosteal thickening involving the ethmoid and frontal sinuses. The orbits appear unremarkable. There is no evidence of a CP angle mass lesion. There is no acute focal lesion, mass effect or midline shift identified. I do not see evidence of int racranial blood. There is Following intravenous administration of gadolinium there is evidence of a venous angioma in the left frontal lobe. No other enhancing lesions are changes are normal. Vertebral body height and alignment are maintained. Atlantoaxial relationships are normal. There is a normal craniocervical junction. Cord signal appears normal. Intervertebral foramina appear patent. There is no significant compressive discopathy. The facet and uncovertebral joints appear unremarkable. IMPRESSION: 1. NO ACUTE INTRACRANIAL ABNORMALITY. 2. VENOUS ANGIOMA IN THE LEFT FRONTAL REGION. 3. NO SIGNIFICANT COMPRESSIVE DISCOPATHY OR NEURAL COMPRESSION WITHIN THE CERVICAL REGION. 4. EVALUATION FOR MS PLAQUES IS LIMITED TO ONLY A SAGITTAL PROJECTIONS ON THE MRI OF THE BRAIN DUE TO LACK OF T2 IMAGING IN THE AXIAL PROJECTION.
[2018-10-28 16:19] VITALS: BP 128/69; PULSE 62; RESP 16; TEMP 98.4
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
--- NOTE | 2018-10-28 19:04 | P.DS ---
Providers Date of admission: 10/27/18 06:36 Attending physician: Monica Jimenez MD Consults: 10/27/18 06:37 Consult Physician Urgent Consulting Provider: Radha Saini Consult Reason/Comments: right weakness, vision changes, fam hx MS Do you want consulting provider notified?: Yes, Notify in am 10/27/18 13:45 Consult Physician Routine Consulting Provider: Ted Jay Consult Reason/Comments: RUTH, hematuria Do you want consulting provider notified?: Yes Primary care physician: Stated None Hospital Course: Admission date 10/27/2018 Discharge date 10/28/2017 Reason for admission: Headache Discharge diagnosis: 1. Headache 2. Elevated creatinine to rule out a candidate 3. Microscopic hematuria Consultants: 1. Neurology Dr. Parveen Flores 2. Nephrology Dr. Barajas Procedures done on this admission: MRI brain and cervical spine MRA of brain Incidental finding of left hemispheric venous malformation otherwise no any abnormalities Reason for admission: 28-year-old male generally healthy presenting with some wake complain of intermittent frontal and occipital headache for the last couple weeks. Also occasional blurring in the right eye. Also some numbness in the right thumb. Also reporting some neck discomfort when turning his head toward left. No focal neurological deficits no nausea no vomiting no changes in the headache quality or quantity with positioning. No worsening with laying down. No waking up overnight and or lay out drafter headaches. He was taking lots of Motrin for headache. He denied any dysuria or hematuria or difficulties in urination Hospital course: Patient was evaluated by neurology and nephrology service. He underwent above mentioned studies. MRI was only noticeable for small venous malformation in the left hemispheric area. Neurology evaluated this and felt this is incidental finding and has nothing to do with any of his symptoms. On the day of discharge of patient symptoms or complaints resolved and he was completely pain-free and symptom-free. He was cleared by neurology for discharge. They recommended him to follow up in neurology office in 2-4 weeks for EMG. Nephrology valid to the patient and felt that mild elevation of creatinine some of the RBCs in the urine could be related to excessive use of Motrin. Recommendation is to repeat labs. Patient's electrolytes and bicarb were stable. His creatinine was 1.34. His creatinine was 1.06. Disposition: Patient was discharged home in stable condition. He was instructed to follow-up in 3 weeks with neurology and in 2 weeks with nephrology. He was advised to repeat BMP in 1 week and to contact whether ECP office or nephrology office to obtain referral to the lab. Plan - Discharge Summary Discharge Rx Participant: No New Discharge Prescriptions: No Action No Known Home Medications Discharge Medication List No Known Home Medications 10/03/18 [History] Follow up Appointment(s)/Referral(s): None,Stated [Primary Care Provider] - 1-2 days Cara Saini MD [STAFF PHYSICIAN] - 3 Weeks Ted Jay DO [STAFF PHYSICIAN] - 1 Week Care Plan Goals (MU): follow up with suede brusher and neurology. Please call for appointment. Avoid taking NSAIDs medications like motrine aleve, naproxen etc Repeat BMP lab work in 1 week with PCP or nephrology office Discharge Disposition: HOME SELF-CARE
== END 2018-10-28 19:20 | disposition home or self-care (01) ==
LOC: EC 02:25 → 1SOBS 06:36
PROVIDERS: ADMIT Internal Medicine; ATTEND Internal Medicine
DX: R51 Headache (principal); H53.8 Other visual disturbances; M54.2 Cervicalgia; R20.2 Paresthesia of skin; R20.0 Anesthesia of skin; M62.81 Muscle weakness (generalized); Q28.3 Other malformations of cerebral vessels; F17.200 Nicotine dependence, unspecified, uncomplicated; K21.9 Gastro-esophageal reflux disease without esophagitis; N17.9 Acute kidney failure, unspecified; G37.9 Demyelinating disease of central nervous system, unspecified; M54.12 Radiculopathy, cervical region; R31.29 Other microscopic hematuria; Z82.0 Family history of epilepsy and other diseases of the nervous system
CPT/HCPCS: 96361; 96374; 96375; 99285; 36415; 80053; 85652; 85025; 81001; 72128; 72125; 72131; 70450; 70544; 70553; 72156; G0378 ×2; J1200; J2765; A9585

== ENCOUNTER 2020-11-11 22:24 | Emergency (ER) | payer OTHER ==
[2020-11-11 22:30] VITALS: RESP 18; TEMP 98.3
[2020-11-11] MEDS ORDERED: KETOROLAC 15 MG/ML 1 ML VIAL IVP STA (22:48)
[2020-11-11] MEDS ORDERED: ONDANSETRON 4 MG/2 ML VIAL IVP STA (22:48)
[2020-11-11] MEDS ORDERED: diphenhydrAMINE 50 MG/ML 1 ML VIAL IVP STA (22:48)
[2020-11-11] MEDS ORDERED: SODIUM CHLORIDE 0.9% 1,000 ML IV STA (22:48)
--- NOTE | 2020-11-11 22:58 | ED ---
Headache HPI - General Chief Complaint: Headache Stated Complaint: Headache Time Seen by Provider: 11/11/20 22:33 Mode of arrival: ambulatory Limitations: no limitations - History of Present Illness Initial Comments: Patient is a 30-year-old male presenting to the emergency Department with complaints of a headache 2 weeks. Patient states he has had headaches in the past. He denies any trauma or falls. He denies being on blood thinners. He states the headache is mostly all over the top of his head, has been fairly consistent over the past 2 weeks. He states he is able to sleep but wakes up and it still there. He has been able to eat and drink as normal, very minimal nausea at times, no vomiting. He denies any fever or chills. He denies any changes in his vision, no lightheadedness, no paresthesias to the extremities. He denies any other complaints at this time. Upon arrival to the ER, his vital signs are stable. - Related Data Home Medications Medication Instructions Recorded Confirmed No Known Home Medications 10/03/18 10/27/18 Allergies Allergy/AdvReac Type Severity Reaction Status Date / Time No Known Allergies Allergy Verified 11/11/20 22:30 Review of Systems ROS Statement: Those systems with pertinent positive or pertinent negative responses have been documented in the HPI. ROS Other: All systems not noted in ROS Statement are negative. Past Medical History Past Medical History: No Reported History Additional Past Medical History / Comment(s): slipped disc in neck History of Any Multi-Drug Resistant Organisms: None Reported Past Surgical History: No Surgical Hx Reported Past Anesthesia/Blood Transfusion Reactions: Unable to Obtain Additional Past Anesthesia/Blood Transfusion Reaction / Comment(s): Pt has never had surgery Past Psychological History: No Psychological Hx Reported Smoking Status: Current every day smoker Past Alcohol Use History: None Reported Past Drug Use History: Cocaine, Marijuana - Past Family History Father Family Medical History: No Reported History Additional Family Medical History / Comment(s): Father is healthy. Mother Family Medical History: Musculoskeletal Disorder, Neurologic Disorder Additional Family Medical History / Comment(s): Mother has MS. General Exam - General Exam Comments Initial Comments: GENERAL: Patient is well-developed and well-nourished. Patient is nontoxic and in no acute distress. HEAD: Atraumatic, normocephalic. EYES: Pupils equal round and reactive to light, extraocular movements intact, sclera anicteric, conjunctiva are normal. Eyelids were unremarkable. ENT: TMs normal, nares patent, oropharynx clear without exudates. Moist mucous membranes. NECK: Normal range of motion, supple without lymphadenopathy or JVD. LUNGS: Unlabored respirations. Breath sounds clear to auscultation bilaterally and equal. No wheezes rales or rhonchi. HEART: Regular rate and rhythm without murmurs, rubs or gallops. ABDOMEN: Soft, nontender, normoactive bowel sounds. No guarding, no rebound. No masses appreciated. : Deferred MUSCULOSKELETAL: Normal extremities with adequate strength and normal range of motion, no pitting or edema. No clubbing or cyanosis. NEUROLOGICAL: Patient is alert and oriented x 3. Motor and sensory are also intact. Cranial nerves II through XII grossly intact. Symmetrical smile. Normal speech, normal gait. PSYCH: Normal mood, normal affect. SKIN: Warm, Dry, normal turgor, no rashes or lesions noted. Limitations: no limitations Course Vital Signs 11/11/20 11/12/20 22:27 00:43 Temperature 98.3 F 98.3 F Pulse Rate 82 52 L Respiratory 18 18 Rate Blood Pressure 141/79 138/81 O2 Sat by Pulse 99 99 Oximetry Medical Decision Making - Medical Decision Making Patient is a 30-year-old male here for a headache 2 weeks. He does have history of headaches. His vital signs are stable, his exam is unremarkable, no acute neuro deficits. Patient was given fluids, pain control and does report improvement in symptoms. He states his headache is currently 3/10 and does want to go home. Patient states he does not have a primary care physician, I will give him a couple referrals. Return parameters were discussed with the patient and he verbalized understanding. Case discussed with Dr. Tobias. Disposition Clinical Impression: Headache Disposition: HOME SELF-CARE Condition: Stable Instructions (If sedation given, give patient instructions): Acute Headache (ED) Additional Instructions: Please return to the Emergency Department if symptoms worsen or any other concerns. Trial of Excedrin Extra Strength for future headaches. Follow-up with regular doctor. Is patient prescribed a controlled substance at d/c from ED?: No Referrals: None,Stated [Primary Care Provider] - 1-2 days Jarred Bridges MD [REFERRING] - 1-2 days Deborah Church MD [REFERRING] - 1-2 days
[2020-11-11] MEDS ORDERED: MORPHINE SULFATE 4 MG/ML SYRINGE IVP STA (23:52)
[2020-11-12 00:43] VITALS: BP 138/81; PULSE 52
== END 2020-11-12 00:43 | disposition home or self-care (01) ==
LOC: EC 22:24
DX: R51.9 Headache, unspecified (principal); R11.0 Nausea; F17.200 Nicotine dependence, unspecified, uncomplicated
CPT/HCPCS: 99284; 96374; 96375 ×3; 96361; J2270; J1200; J2405; J1885